=== PATIENT | male | born 1965 | race Two or more races ===

== ENCOUNTER → 2020-04-09 | Outpatient (CLI) | payer BC ==
--- NOTE | 2020-04-09 15:23 | Diagnostic Imaging Report ---
Indication: Cough Technique: PA and lateral views of the chest Comparison: None Findings: Heart size and mediastinal contours are within normal limits. There is no focal airspace consolidation. No pleural effusion, pneumothorax or radiographic evidence of pulmonary edema. Mild degenerative changes noted in the spine. No acute osseous abnormality. IMPRESSION: No radiographic evidence of acute cardiopulmonary disease.
== END | disposition home or self-care (01) ==
LOC: RAD 12:36
DX: R05 Cough (principal)
CPT/HCPCS: 71046

== ENCOUNTER 2020-08-09 11:34 | Emergency (ER) | payer BC ==
[~2020-08-09] VITALS: Ht 177.8 cm; Wt 84.4 kg
--- NOTE | 2020-08-09 11:56 | NUR ---
ED Nurse Note: Patient from home and walked in for infusion of monoclonal antibody. Pt was sent by Dr Eugene. Pt tested covid positive on 08/08/20 and is experiencing coughing and fatigue x 3 days. No s/sx of respiratory distress at this time. Patient is AAO x4, ambulatory, follows comands and speaks in clear sentences.
[2020-08-09 12:00] VITALS: BP 145/90
[2020-08-09] MEDS ORDERED: Bamlanivimab 700 MG in NS 275 ML IVPB SCH (12:00)
[2020-08-09] MEDS ORDERED: Bamlanivimab Fact Sheet MISC ONE (12:00)
--- NOTE | 2020-08-09 12:03 | Emergency Room Report ---
History of Present Illness General Chief Complaint: Flu Like Symptoms Source: Patient, PMD Present Illness HPI Patient presents for BAM. Patient's had 4 course of antibiotics for pneumonia. Is a history of asthma. He is mainly taking inhaled steroids and Spiriva. This was improving however recently he had a birthday libertarian for his and got alerted that one of the contacts tested positive for Covid. He tested yesterday for Covid and came back positive. He is sent by his private doctor to get BAM. (His have received a clinical trial of vaccine. He tested negative yesterday.) Patient's complaining about muscle aches and fevers with some chilling. He is also had diarrhea that has been a dark brown without blood. No chest pain, palpitations, nausea, vomiting, dysuria, abdominal pain, shortness of breath,depression, anxiety, visual changes, dizziness, headache. The patient takes preventative medication for HIV. 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 COVID-19 Screening: Positive COVID-19 COVID-19 Testing Source: [address] Patient History Past Medical History: see triage record Social History: Denies: smoking, drug use Social History Narrative Reviewed Nursing Documentation: PMH: Agreed; PSxH: Agreed Nursing Documentation-PMH Hx Asthma: Yes - PNA Review of Systems All Other Systems: negative except mentioned in HPI Physical Exam Vital Signs Date Time Temp Pulse Resp B/P (MAP) Pulse Ox O2 Delivery O2 Flow Rate FiO2 08/09/20 11:49 98.2 89 22 148/89 (108) 97 Room Air Sp02 EP Interpretation: reviewed, normal General Appearance: well appearing, no apparent distress, GCS 15, non-toxic, other - Slightly sweaty after taking Tylenol Head: normocephalic Eyes: bilateral eye normal inspection, bilateral eye PERRL, bilateral eye EOMI ENT: normal pharynx, moist mucus membranes Neck: full range of motion, supple Respiratory: chest non-tender, lungs clear, normal breath sounds, no wheezing Cardiovascular #1: regular rate, rhythm Cardiovascular #2: 2+ radial (R) Gastrointestinal: normal inspection, normal bowel sounds, non tender, no mass, non-distended Genitourinary: no CVA tenderness Musculoskeletal: back normal, normal range of motion, no calf tenderness, gait/station normal Neurologic: alert, oriented x3, grossly normal Psychiatric: mood/affect normal Skin: no rash, warm/dry Medical Decision Making Diagnostic Impression: Primary Impression: COVID-19 ER Course Patient presents for BAM. Patient shows positive results for Covid testing on yesterday. He has symptoms consistent with Covid. He is at risk. His oxygen saturation is 96%. BAM is ordered. Patient received BAM infusion without difficulty or complications. Patient oximetry 98% after infusion. Discussed isolation and follow-up procedures. Multiple questions asked and answered. Patient stable for outpatient observation and treatment. Last Vital Signs Date Time Temp Pulse Resp B/P (MAP) Pulse Ox O2 Delivery O2 Flow Rate FiO2 08/09/20 15:14 98.7 85 18 125/90 99 Room Air Status: improved Disposition: HOME, SELF-CARE Condition: Improved Trenton Ashton MD Aug 09, 2020 12:03
[2020-08-09] MEDS ORDERED: Acetaminophen 500mg (ES) tab ORAL ONE (12:15)
--- NOTE | 2020-08-09 13:00 | NUR ---
ED Nurse Note: pt. education to the patietnr egarding the risks and benefits of the bamlanivimab infusion. pt. currently on cardiac monitoring
[2020-08-09 14:00] VITALS: BP 134/89
[2020-08-09 15:14] VITALS: BP 125/90
--- NOTE | 2020-08-09 15:14 | NUR ---
ER DISCHARGE NOTE: Patient is cleared to be discharged per ERMD, pt is aox4, on room air, with stable vital signs. pt was given dc instructions, pt was able to verbalize understanding, pt id band removed. pt is able to ambulate with steady gait. pt took all belongings. ID band/IV removed.
== END 2020-08-09 15:14 | disposition home or self-care (01) ==
LOC: EMR 12:00
DX: U07.1 COVID-19 (principal); M79.10 Myalgia, unspecified site; R50.9 Fever, unspecified; Z23 Encounter for immunization; J45.909 Unspecified asthma, uncomplicated; Z88.1 Allergy status to other antibiotic agents; Z79.899 Other long term (current) drug therapy
CPT/HCPCS: 96365; 99284